=== PATIENT | female | born 1995 | race American Indian/Alaskan Native ===

== ENCOUNTER 2016-09-18 20:30 | Emergency (ER) | payer OTHER ==
[2016-09-18 20:42] VITALS: RESP 20; TEMP 99.3; O2SAT 100
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
[2016-09-18 22:48] VITALS: BP 100/60; PULSE 85
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
== END 2016-09-18 22:50 | disposition home or self-care (01) ==
LOC: C.ER 20:30 → SUPCPDRO 20:30 → C.ER 22:50
DX: S00.83XA Contusion of other part of head, initial encounter (principal); S60.031A Contusion of right middle finger without damage to nail, initial encounter; Y08.89XA Assault by other specified means, initial encounter